=== PATIENT | male | born 1980 | race Two or more races ===

== ENCOUNTER 2024-05-11 18:24 | Emergency (ER) | payer OTHER ==
[~2024-05-11] VITALS: Ht 180.3 cm; Wt 117.9 kg
[2024-05-11 18:53] VITALS: BP 154/104; TEMP 98.4; O2SAT 97
== END 2024-05-11 19:21 ==
LOC: ER 18:37
DX: S00.81XA Abrasion of other part of head, initial encounter (principal); S10.81XA Abrasion of other specified part of neck, initial encounter; M79.644 Pain in right finger(s); F20.9 Schizophrenia, unspecified; Y04.0XXA Assault by unarmed brawl or fight, initial encounter; Y93.89 Activity, other specified; Y92.89 Other specified places as the place of occurrence of the external cause; Y99.8 Other external cause status